=== PATIENT | male | born 1955 | race Hispanic/Latino ===

== ENCOUNTER 2019-07-30 04:32 | Emergency (ER) | payer SELFPAY ==
--- NOTE | ~2019-07-30 | CT_ITS ---
EXAMINATION: CT brain wo con DATE: 07/30/2019 06:36 INDICATION: Dizziness TECHNIQUE: Computed tomography (CT) of the head was performed without intravenous contrast. The mA wa s adjusted according to patient size. Iterative reconstruction technique was employed. Exam dose: 60 5.33 mGy-cm total exam DLP. COMPARISON: None FINDINGS: No intracranial mass lesion or hemorrhage or cerebrovascular accident is detected. No midli ne shift or mass effect. Normal ventricular size. No subdural or epidural hematoma. The orbital struc tures appear unremarkable. No fracture or bone destruction of the cranial vault. The mastoid air cells are normally developed an d aerated. Included paranasal sinuses are unremarkable. IMPRESSION: No significant abnormality Reviewed, dictated and finalized at [facility]. Reviewed, dictated and finalized at [facility]. 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
[2019-07-30 04:32] VITALS: BP 156/89; PULSE 75; RESP 15; TEMP 36.7; O2SAT 97
--- NOTE | 2019-07-30 04:40 | PC.NURSE ---
pt attempting to urinate at this time.
--- NOTE | 2019-07-30 04:41 | ED.DIZZY ---
HPI - Dizziness General Chief Complaint: Dizziness <Jesi Henderson MD - Last Filed: 07/30/19 06:36> Stated Complaint: vertigo <Jesi Henderson MD - Last Filed: 07/30/19 06:36> Time Seen by Provider: 07/30/19 04:33 <Jesi Henderson MD - Last Filed: 07/30/19 06:36> Source: patient <Jesi Henderson MD - Last Filed: 07/30/19 06:36> Mode of arrival: EMS <Jesi Henderson MD - Last Filed: 07/30/19 06:36> Limitations: no limitations <Jesi Henderson MD - Last Filed: 07/30/19 06:36> History of Present Illness HPI Narrative: 64 yo male who presents via EMS for evaluation of vertigo. Patient states he woke up at 245 am to go to the restroom and he felt fine. He states he went back to sleep and he woke up 1 hour later with vertigo. He states every time opens his eyes everything is moving. He also reports sitting up worsens his symptoms. He reports 50 year history of intermittent episodes of vertigo. He denies nausea, vomiting, headache, URI symptoms or focal weakness. <Jesi Henderson MD - Last Filed: 07/30/19 06:36> MD elicited complaint: dizziness and vertigo <Jesi Henderson MD - Last Filed: 07/30/19 06:36> Timing: sudden onset and awoke with symptoms <Jesi Henderson MD - Last Filed: 07/30/19 06:36> Description: room spinning <Jesi Henderson MD - Last Filed: 07/30/19 06:36> Context: change in body position <Jesi Henderson MD - Last Filed: 07/30/19 06:36> History of similar symptoms: Yes <Jesi Henderson MD - Last Filed: 07/30/19 06:36> Exacerbating factors: movement/ambulation, change in body position and keeping eyes open <Jesi Henderson MD - Last Filed: 07/30/19 06:36> Related Data Allergies/Adverse Reactions: Allergies Allergy/AdvReac Type Severity Reaction Status Date / Time No Known Allergies Allergy Verified 07/30/19 04:44 <Jesi Henderson MD - Last Filed: 07/30/19 06:36> Review of Systems Review of Systems: All systems reviewed & are unremarkable except as noted in HPI and below <Jesi Henderson MD - Last Filed: 07/30/19 06:36> Constitutional: Constitutional: Denies chills, Denies fever(s) and Denies weakness <Jesi Henderson MD - Last Filed: 07/30/19 06:36> Eyes: Eyes: Denies change in vision <Jesi Henderson MD - Last Filed: 07/30/19 06:36> ENT: Reports vertigo and Denies nasal congestion <Jesi Henderson MD - Last Filed: 07/30/19 06:36> Cardiovascular: Cardiovascular: Denies chest pain, Denies rapid heart rate and Denies radiating jaw, neck or arm pain <Jesi Henderson MD - Last Filed: 07/30/19 06:36> Respiratory: Respiratory: Denies cough and Denies dyspnea <Jesi Henderson MD - Last Filed: 07/30/19 06:36> Neurologic: Reports vertigo, Denies headache(s) and Denies numbness <Jesi Henderson MD - Last Filed: 07/30/19 06:36> PMFSH Past Medical History Medical History: Medical History (Updated 07/30/19 @ 06:19 by Jesi Henderson MD) Vertigo <Jesi Henderson MD - Last Filed: 07/30/19 06:36> Family History Family History: Family History (Updated 11/24/15 @ 10:51 by DOCTOR UNKNOWN) Other Diabetes mellitus <Jesi Henderson MD - Last Filed: 07/30/19 06:36> Social History Social History: Social History Smoking status: Never smoker Alcohol intake: never <Jesi Henderson MD - Last Filed: 07/30/19 06:36> Exam Narrative: Exam Narrative: GENERAL: Well-appearing, well-nourished, and in no acute distress. HEAD: Normocephalic, atraumatic EYES: PERRLA and EOMI, conjunctiva clear without discharge EARS: TM's clear bilaterally without erythema or dullness NOSE: Nares clear, no rhinorrhea or epistaxis THROAT:Mucous membranes moist, Oropharynx normal without erythema, exudate, peritonsillar swelling or fluctuance NECK: Supple, without lymphadenopathy or mass RESPIRATORY: No respiratory distress, Airway patent, Respirations non-labo
[2019-07-30] MEDS: ONDANSETRON HCL ODT 4 MG TABLET PO (04:45)
[2019-07-30] MEDS: MECLIZINE HCL 25 MG TABLET PO ×2 (04:46→06:09)
[2019-07-30] MEDS: LORAZEPAM 1 MG TABLET PO (04:46)
--- NOTE | 2019-07-30 04:54 | PC.NURSE ---
this rn attempted to get orthostatics on pt. pt not able to sit on the side of bed or stand due to dizziness. md notified. this rn will attempt again soon.
[2019-07-30 05:17] VITALS: BP 134/69; PULSE 57; RESP 12; O2SAT 97
[2019-07-30 05:30] VITALS: BP 141/79; BP 143/82; BP 160/70; PULSE 74; PULSE 78; PULSE 87
[2019-07-30 06:00] LABS: Basophils Percent Auto 0.2 % (0.2-1.2); Eosinophils Absolute Auto 0.1 K/mm3 (0-0.3); Eosinophils Percent Auto 1.9 % (0-4.4); Hematocrit 43.6 % (42.0-52.0); Hemoglobin 14.1 g/dL (14.0-18.0); Immature Granulocyte Absolute 0.03 K/mm3 (0.00-0.031); Immature Granulocyte Percent A 0.5 % (0-0.5); Lymphocytes Absolute Auto 1.28 K/mm3 (0.9-3.2); Lymphocytes Percent Auto 20.6 % (18.3-44.2); Mean Corpuscular HGB Conc 32.3 g/dl (32-36); Mean Corpuscular Hemoglobin 29.7 pg (26-34); Mean Platelet Volume 9.5 fl (7.4-10.4); Monocytes Absolute Auto 0.5 K/mm3 (0.1-0.6); Monocytes Percent Auto 8.7 % (2.6-8.5); Neutrophils Absolute Auto 4.2 K/mm3 (1.3-6.7); Neutrophils Percent Auto 68.1 % (45.5-73.1); Platelet Count Result 300 k/mm3 (150-375); Red Blood Count 4.74 M/mm3 (4.6-6.20); Red Cell Distribution Width 13.2 % (11.5-14.5); White Blood Count 6.2 K/mm3 (4.5-10.0)
[2019-07-30 06:15] LABS: Alanine Aminotransferase 18 U/L (4-50); Alkaline Phosphatase 90 U/L (38-126); Aspartate Amino Transferase 24 U/L (17-59); Bilirubin,Total 0.7 mg/dL (0.2-1.3); Blood Urea Nitrogen 17 mg/dL (9-20); Calcium 9.2 mg/dL (8.4-10.2); Carbon Dioxide 25 mmol/L (22-30); Chloride 102 mmol/L (98-107); Estimated Glomerular Filt Rate > 60; Glucose 125 mg/dL (75-110); Potassium 4.3 mmol/L (3.4-5.0); Sodium 138 mmol/L (137-145)
[2019-07-30 06:19] VITALS: BP 113/59; PULSE 62; RESP 13; O2SAT 98
--- NOTE | 2019-07-30 06:29 | PC.NURSE ---
pt to CT via stretcher
[2019-07-30 06:45] VITALS: BP 133/68; PULSE 59; RESP 10; O2SAT 98
--- NOTE | 2019-07-30 07:54 | PC.NURSE ---
pt. walked fine without any assistants.
[2019-07-30 09:27] VITALS: BP 114/56; PULSE 69; RESP 17; O2SAT 98
--- NOTE | 2019-07-30 14:31 | ECG_ITS ---
Measurements Intervals [place] Rate: 69 P: 58 WA: 159 QRS: 79 QRSD: 101 T: 32 QT: 359 QTc: 385 Interpretive Statements SINUS RHYTHM BASELINE ARTIFACT- V1 NORMAL ECG Electronically Signed On 07-30-2019 15:00:06 [employer]ORE [employer] by Roly Aguilar D.O.
== END 2019-07-30 09:25 | disposition home or self-care (01) ==
PROVIDERS: General Practice; Emergency Provider Emergency Medicine
DX: R42 Dizziness and giddiness (principal)
CPT/HCPCS: 36415; 70450; 80053; 85025; 93005; 99284; A9270

== ENCOUNTER 2020-02-16 13:50 | Emergency (ER) | payer SELFPAY ==
--- NOTE | ~2020-02-16 | XR_ITS ---
EXAMINATION: XR ankle LT min 3V, XR foot LT min 3V DATE: 02/16/2020 INDICATION: Lawnmower injury to the left foot with laceration at the great toe TECHNIQUE: 1. Anteroposterior, mortise, additional oblique and lateral view of the left ankle were obtained. 2. Dorsoplantar, two oblique and lateral views of the left foot were obtained. COMPARISON: None. FINDINGS: Alignment of the foot and ankle is normal. Old healed fracture at the distal left tibial diaphysis wi th a couple subtle lucencies likely representing old fixation screw tracks. Correlate with clinical h istory. There is loss of the distal cortical margin of the tuft of the left great toe consistent with fracture. There is a soft tissue defect overlying the fracture and the cortical fragment is not iden tified suggesting loss of tissue thickening at the time of injury. No other fractures identified. Het erotopic ossicle near the tip of the lateral malleolus likely sequela of chronic lateral ankle sprain . Mild polyarticular osteoarthritis at the left ankle and multiple metatarsophalangeal and interphala ngeal joints. Small Achilles calcaneal spur. No ankle joint effusion. IMPRESSION: 1. Soft tissue defect and loss of the distal cortical margin of the tuft of the left fifth distal pha lanx consistent with open/compound fracture. Reviewed, dictated and finalized at [facility]. IMPRESSION: 1. Soft tissue defect and loss of the distal cortical margin of the tuft of the left fifth distal phalanx consistent with open/compound fracture.
[2020-02-16 13:54] VITALS: BP 193/75; PULSE 84; RESP 18; TEMP 36.3; O2SAT 100
[2020-02-16] MEDS: MORPHINE SULFATE 2 MG/ML INJ IV PUSH (14:09)
[2020-02-16] MEDS: TETANUS,DIPHTHERIA,AC PERTUSSIS ADULT (0.5 ML) BOOSTRIX IM (14:15)
[2020-02-16] MEDS: CELLULOSE OXIDIZED 2 x 14 INCH 1 PKT XX (14:17)
--- NOTE | 2020-02-16 15:58 | ED.WOUNDLAC ---
HPI - Wound/Laceration General Chief Complaint: Wound/Laceration <Telma Pathak PA-C - Last Filed: 02/16/20 17:57> Stated Complaint: L FOOT VS LAWNMOWER <GEORGE Gomez Last Filed: 02/16/20 17:57> Time Seen by Provider: 02/16/20 13:55 <Telma Pathak PA-C - Last Filed: 02/16/20 17:57> Source: patient <GEORGE Gomez Last Filed: 02/16/20 17:57> Mode of arrival: ambulatory <GEORGE Gomez Last Filed: 02/16/20 17:57> Limitations: no limitations <GEORGE Gomez Last Filed: 02/16/20 17:57> History of Present Illness HPI narrative: Patient drove herself to the emergency department for evaluation of his left toe after tripping and having the lawnmower blade cut the toe prior to arrival. Patient states that he does have sensation in the toe and at this time pain is 10 out of 10. Patient reports that he is currently receiving antifungal treatments for his nail fungus. Patient reports some tenderness to the ankle and states that he believes he twisted it when he fell. Patient states that he put his left arm out to catch himself but denies any pain to the arm or his back. Patient denies any other areas of discomfort. He denies hitting his head have any loss of consciousness, change in vision or hearing, nausea, vomiting, abdominal pain or any other symptoms. <Telma Pathak PA-C - Last Filed: 02/16/20 17:57> Related Data Allergies/Adverse Reactions: Allergies Allergy/AdvReac Type Severity Reaction Status Date / Time No Known Allergies Allergy Verified 02/16/20 14:01 <Telma Pathak PA-C - Last Filed: 02/16/20 17:57> Review of Systems Review of Systems: Narrative: CONSTITUTIONAL: Denies fever, chills, or sweats. EYES: Denies visual changes, redness, or discharge. ENT: Denies rhinorrhea, congestion, sore throat, or otalgia. CARDIOVASCULAR: Denies chest pain, palpitations, or edema. RESPIRATORY: Denies cough or dyspnea. GASTROINTESTINAL: Denies abdominal pain, nausea, vomiting, or diarrhea. GENITOURINARY: Denies dysuria or hematuria. SKIN: Reports wound denies rash or itching. MUSCULOSKELETAL: Reports left great toe injury. NEUROLOGIC: Denies headache, numbness, dizziness, or weakness. PSYCHIATRIC: Denies anxiety or depression. <Telma Pathak PA-C - Last Filed: 02/16/20 17:57> [facility] Past Medical History Medical History: Medical History (Updated 02/16/20 @ 16:09 by Telma Pathak PA-C) Vertigo <eTlma Pathak PA-C - Last Filed: 02/16/20 17:57> Family History Family History: Family History (Updated 11/24/15 @ 10:51 by DOCTOR UNKNOWN) Other Diabetes mellitus <Telma Pathak PA-C - Last Filed: 02/16/20 17:57> Social History Social History: Social History Smoking status: Never smoker Alcohol intake: never Gender identity (if verbalized by the patient): Male <Telma Pathak PA-C - Last Filed: 02/16/20 17:57> Exam Narrative: Exam Narrative: GENERAL: Well-appearing, well-nourished, and in no acute distress. Patient calm and does not appear diaphoretic. HEAD: Normocephalic, atraumatic. EYES: PERRLA and EOMI. ENT: Nares clear, no rhinorrhea or epistaxis. Mucous membranes moist. Oropharynx without tonsillar hypertrophy exudate or other lesions. Bilateral TMs pearly castellano nonbulging NECK: Supple. No adenopathy or masses. CHEST: Clear to auscultation. No respiratory distress. No wheezes rales or rhonchi HEART: Regular rate and rhythm. ABDOMEN: Soft, nontender, nondistended, normal active bowel sounds. EXTREMITIES: Normal range of motion. No edema. SKIN: Blade injury has avulsed tissue from center of great toe tuft to medial edge in diagnal fashion. There is mild bleeding. Snesation intact. Nail still in place very thickened with onychomycosis. small non bleeding superficial abrasion to left arm, no lorrie tenderness. Warm, dry, no rash. NEURO: No focal deficits. Alert and oriented x3. PSYCH: Normal mood
[2020-02-16 16:20] VITALS: BP 168/95; PULSE 65; RESP 15; O2SAT 99
[2020-02-16 16:25] VITALS: BP 168/95; PULSE 65; RESP 15; O2SAT 99
== END 2020-02-16 16:26 | disposition home or self-care (01) ==
PROVIDERS: Emergency Provider Emergency Medicine
DX: S92.422B Displaced fracture of distal phalanx of left great toe, initial encounter for open fracture (principal); Z23 Encounter for immunization; W28.XXXA Contact with powered lawn mower, initial encounter
CPT/HCPCS: 12001; 73610; 73630; 90471; 90715; 96365; 96375; 99284; J0690; J2270

== ENCOUNTER 2020-03-16 19:26 | Emergency (ER) | payer SELFPAY ==
[2020-03-16 19:42] VITALS: BP 126/56; PULSE 78; RESP 17; TEMP 36.2; O2SAT 100
[2020-03-16 20:05] LABS: Basophils Percent Auto 0.3 % (0.2-1.2); Eosinophils Percent Auto 0.1 % (0-4.4); Hematocrit 49.6 % (42.0-52.0); Hemoglobin 16.6 g/dL (14.0-18.0); Immature Granulocyte Absolute 0.06 K/mm3 (0.00-0.031); Immature Granulocyte Percent A 0.4 % (0-0.5); Lymphocytes Absolute Auto 1.07 K/mm3 (0.9-3.2); Lymphocytes Percent Auto 7.3 % (18.3-44.2); Mean Corpuscular HGB Conc 33.5 g/dl (32-36); Mean Corpuscular Hemoglobin 29.7 pg (26-34); Mean Corpuscular Volume 88.9 fl (80-100); Mean Platelet Volume 9.8 fl (7.4-10.4); Monocytes Absolute Auto 0.5 K/mm3 (0.1-0.6); Monocytes Percent Auto 3.2 % (2.6-8.5); Neutrophils Percent Auto 88.7 % (45.5-73.1); Platelet Count Result 339 k/mm3 (150-375); Red Blood Count 5.58 M/mm3 (4.6-6.20); White Blood Count 14.7 K/mm3 (4.5-10.0)
[2020-03-16 20:09] LABS: Add Urine Microscopic? YES; Appearance Urine Clear (Clear); Bacteria Urine Trace /hpf; Bilirubin Urine Negative (Negative); Blood Urine Negative (Negative); Color Urine Yellow (Yellow); Glucose Urine UA Negative (Negative); Ketones Urine 1+ mg/dL (Negative); Leukocyte Esterase Ur Negative LEU/UL (Negative); Mucus Urine Heavy /lpf; Nitrate Urine Negative (Negative); Protein Urine 2+ mg/dL (Negative); Squamous Epithelial Cell Urine Rare /hpf (Few); WBC Urine 0-3 /hpf
[2020-03-16 20:10] LABS: Specific Grav Ur 1.031 (1.001-1.035)
[2020-03-16 20:19] LABS: Alanine Aminotransferase 44 U/L (4-50); Albumin Level 4.9 g/dL (3.5-5.1); Alkaline Phosphatase 129 U/L (38-126); Anion Gap 12 mmol/L (8-16); Aspartate Amino Transferase 35 U/L (17-59); Bilirubin,Total 1.2 mg/dL (0.2-1.3); Blood Urea Nitrogen 22 mg/dL (9-20); Carbon Dioxide 28 mmol/L (22-30); Chloride 100 mmol/L (98-107); Estimated Glomerular Filt Rate > 60; Glucose 185 mg/dL (75-110); Lipase 105 U/L (23-300); Potassium 4.3 mmol/L (3.4-5.0); Sodium 140 mmol/L (137-145)
--- NOTE | 2020-03-16 21:12 | PC.NURSE ---
Patient notified this RN that patient's pain is getting worse and cannot wait any longer to be seen.
== END 2020-03-16 21:12 | disposition left against medical advice (07) ==
LOC: ANHED 21:37
PROVIDERS: Emergency Provider Emergency Medicine
DX: R11.10 Vomiting, unspecified (principal)
CPT/HCPCS: 36415; 80053; 81001; 83690; 85025; 99199

== ENCOUNTER 2022-08-08 16:56 | Emergency (ER) | payer OTHER, SELFPAY ==
--- NOTE | ~2022-08-08 | XR_ITS ---
EXAMINATION: XR hand RT min 3V DATE: 08/08/2022 18:02 INDICATION: Right hand injury. TECHNIQUE: 4 views of right hand were obtained. COMPARISON: None. FINDINGS: Bone alignment is normal. No fracture. There is mild osteoarthritis of first carpometacarpa l joint and some of the interphalangeal joints. IMPRESSION: 1. Mild polyarticular osteoarthritis. Reviewed, dictated and finalized at [facility]. 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
[2022-08-08 17:56] VITALS: BP 167/77; PULSE 67; RESP 18; TEMP 36.8; O2SAT 99
--- NOTE | 2022-08-08 19:39 | ED.UPPEXIN ---
HPI - Extremity Injury (Upper) General Chief Complaint: Extremity Injury, Upper Stated Complaint: smashed right fingers on at work Time Seen by Provider: 08/08/22 19:35 Source: patient Mode of arrival: ambulatory Limitations: no limitations History of Present Illness HPI narrative: 67 years old white male presented to the ED with pain at the tip of the right fifth finger after got squeezed between 2 hard object 5 days ago he denies other injuries. Related Data Allergies Allergy/AdvReac Type Severity Reaction Status Date / Time No Known Allergies Allergy Verified 02/25/22 15:20 Review of Systems Review of Systems: All systems reviewed & are unremarkable except as noted in HPI and below PMFSH Past Medical History Medical History Contact with powered lawnmower as cause of accidental injury at home as place of occurrence Diabetes Laceration of toe of left foot with damage to nail Vertigo Vision abnormalities Family History Family History Other Diabetes mellitus Social History Social History Smoking status: Current every day smoker Alcohol intake: never Gender identity (if verbalized by the patient): Male Exam Narrative: General appearance: Well-developed, well-nourished Skin: Normal color Vascular: Normal peripheral pulses, normal capillary refill. Musculoskeletal: Normal range of motion, nontender back, right fifth finger showed subungual hematoma Neurologic: Alert and oriented ?3, Course Reevaluation(s) Reevaluation #1: Patient feeling much better after draining the subungual hematoma and ready to go home Date: 08/08/22 Time: 20:55 Vital Signs Vital signs: Vital Signs Temperature 36.8 C 08/08/22 17:56 Pulse Rate 67 08/08/22 17:56 Respiratory Rate 18 08/08/22 17:56 Blood Pressure 167/77 H 08/08/22 17:56 Pulse Oximetry 99 08/08/22 17:56 Temperature 36.8 C 08/08/22 17:56 Pulse Rate 67 08/08/22 17:56 Respiratory Rate 18 08/08/22 17:56 Blood Pressure 167/77 H 08/08/22 17:56 Pulse Oximetry 99 08/08/22 17:56 Procedures Nail Trephination Nail Trephination #1: Nail Trephination Date: 08/08/22 Nail Trephination Time: 20:57 Time out: Yes (5 minutes) Location (finger): right and short Sterile prep: other (None) Method of drainage: nail cautery Procedure successful: Yes Patient tolerated procedure: well Nail Trephination Comment: Quite of blood came out after nasal cautery, with good response. Patient feeling much better MDM - Extremity Injury (Upper) MDM Narrative Medical decision making narrative: Patient had injury, squeeze the tip of the right fifth finger 5 days ago, causing to have angular hematoma, Differential Diagnosis Differential diagnosis: Likely other (Finger fracture, subungual hematoma) Imaging Data Radiologist's impression: Impressions Hand X-Ray 08/08/22 18:06 IMPRESSION: 1. Mild polyarticular osteoarthritis. Critical Care Time Critical Care Time Critical Care Time: No Discharge Plan Discharge Clinical Impression: Subungual hematoma of finger Patient Disposition: Home, Self-Care Condition: Improved Instructions: Subungual Hematoma (ED) Additional Instructions: Return if symptoms are worsening , call Dr. Ness for appointment, take Tylenol as as needed for aches and pain, continue home medications. Prescriptions: No Action oxycodone-acetaminophen [Percocet] 7.5-325 mg tablet 1 tablet PO Q4H PRN
[2022-08-08 21:16] VITALS: BP 145/76; PULSE 58; RESP 12; O2SAT 98
== END 2022-08-08 21:16 | disposition home or self-care (01) ==
PROVIDERS: Emergency Provider Emergency Medicine
DX: S60.051A Contusion of right little finger without damage to nail, initial encounter (principal); E11.9 Type 2 diabetes mellitus without complications; F17.200 Nicotine dependence, unspecified, uncomplicated; M18.9 Osteoarthritis of first carpometacarpal joint, unspecified; M19.041 Primary osteoarthritis, right hand; W23.0XXA Caught, crushed, jammed, or pinched between moving objects, initial encounter
CPT/HCPCS: 11740; 73130; 99283